=== PATIENT | male | born 1960 | race Caucasian/White ===

== ENCOUNTER 2020-08-25 09:40 | Day surgery (SDC) | payer BC ==
[2020-08-25 11:25] LABS: SARS-CoV-2 NAA Rapid Test Not Detected (NotDetected)
[2020-08-25] MEDS ORDERED: Fentanyl 100 MCG/2 ML VIAL ONE ×2 (11:33→12:17)
[2020-08-25] MEDS ORDERED: Midazolam HCl 2 mg/2 ml Vial ONE ×2 (11:33→12:17)
[2020-08-25] MEDS ORDERED: Ketamine 50 MG/ML (10ML VIAL) ONE (12:18)
[2020-08-25] MEDS ORDERED: Propofol 500 MG/50 ML VIAL ONE (12:18)
[2020-08-25] MEDS ORDERED: PHENYLEPHRINE-NS 100 MCG/ML 10 ML SYRINGE ONE (12:44)
[2020-08-25] MEDS ORDERED: Bupivacaine HCl 0.5%/Epinephrine 1:200,000/PF 30 ml Vial ONE (12:44)
== END 2020-08-25 15:50 | disposition home or self-care (01) ==
LOC: SDC 09:40
PROVIDERS: ATTEND Surgery Surgery of the Hand
PROC: 0X6S0Z0 Detachment at Right Ring Finger, Complete, Open Approach (ICD-10-PCS; principal; 2020-08-25)
PROC: 0X6R0Z0 Detachment at Left Middle Finger, Complete, Open Approach (ICD-10-PCS; principal; 2020-08-25)
DX: S68.113A Complete traumatic metacarpophalangeal amputation of left middle finger, initial encounter (principal); S68.114A Complete traumatic metacarpophalangeal amputation of right ring finger, initial encounter; I10 Essential (primary) hypertension; F17.210 Nicotine dependence, cigarettes, uncomplicated; Z79.899 Other long term (current) drug therapy; Z20.822 Contact with and (suspected) exposure to COVID-19; W31.2XXA Contact with powered woodworking and forming machines, initial encounter
CPT/HCPCS: J0690; J2250; J2704; J3010; U0002

== ENCOUNTER 2021-04-17 21:18 | Inpatient (IN) | payer BC ==
[2021-04-17] MEDS ORDERED: Lorazepam 2 MG/ML VIAL ONE (21:25)
[2021-04-17 22:37] LABS: Acetaminophen Less than 6.0 mcg/mL (10.0-30.0); Alcohol Less than 10 mg/dL (Less than 10); Magnesium 1.4 mg/dL (1.6-2.6); Salicylate Less than 8.0 mg/dL (15.0-30.0)
[2021-04-18] MEDS ORDERED: Lorazepam 1 MG TAB PO PRN
[2021-04-18] MEDS ORDERED: Magnesium 2 GM/50 ML BAG (IN WATER) ONE ×2 (01:02→11:45)
[2021-04-18] MEDS ORDERED: cloNIDine 0.1 MG TAB ONE (02:51)
[2021-04-18] MEDS ORDERED: hydrALAZINE 20 MG/ML VIAL SLOW IVP SCH ×2 (07:00→07:15)
[2021-04-18] MEDS ORDERED: hydrALAZINE 20 MG/ML VIAL ONE (07:12)
[2021-04-18] MEDS: Lorazepam 1 MG TAB PO SCH ×5 (07:26→23:36)
[2021-04-18] MEDS ORDERED: Ondansetron ODT 4 MG TAB PO PRN (07:30)
[2021-04-18] MEDS ORDERED: Lorazepam 2 MG/ML VIAL IM PRN (07:30)
[2021-04-18] MEDS ORDERED: Electrolyte Replacement Protocol 1 EACH FS PRN (07:30)
[2021-04-18] MEDS: Thiamine HCl 200 MG/2 ML VIAL SLOW IVP SCH (08:07)
[2021-04-18] MEDS ORDERED: Lorazepam 1 MG TAB ONE ×2 (08:09→12:00)
[2021-04-18] MEDS: Multivit, Therapeutic 1 TAB PO SCH (08:10)
[2021-04-18] MEDS ORDERED: Folic Acid 1 MG TAB ONE ×2 (08:11→11:46)
[2021-04-18 08:32] LABS: Amphetamine Not Detected (NotDetected); Barbiturates Screen Not Detected (NotDetected); Benzodiazepine Screen Detected (NotDetected); Cocaine Metabolite Screen Not Detected (NotDetected); Methadone Not Detected (NotDetected); Methamphetamine Not Detected (NotDetected); Opiate Screen Not Detected (NotDetected); Oxycodone Screen Not Detected (NotDetected); Phencyclidine (PCP) Not Detected (NotDetected); THC/Cannabinoid Screen Not Detected (NotDetected); Tricyclic Screen Not Detected (NotDetected)
[2021-04-18 09:18] LABS: SARS-CoV-2 NAA Rapid Test Not Detected (NotDetected)
[2021-04-18] MEDS ORDERED: Magnesium 2 GM/50 ML 2 GM in Premix Bag 1 BAG IVPB SCH (09:30)
[2021-04-18 10:24] LABS: #Basophils 0.1 thou/uL (0.0-0.2); #Eosinphils 0.2 thou/uL (0.0-0.7); #Lymphocytes 1.7 thou/uL (1.20-3.40); #Monocytes 0.7 thou/uL (0.11-0.59); #Neutrophils 4.1 thou/uL (1.40-6.50); %Basophils 1.7 % (0.0-1.0); %Eosinophils 2.7 % (0.0-10.0); %Monocytes 10.2 % (0.0-10.0); %Neutrophils 60.4 % (42.0-75.0); Hemoglobin 13.7 g/dL (14.0-18.0); Mean Corpuscular HGB CONC 32.6 g/dL (32.0-36.0); Mean Corpuscular Hemoglobin 31.2 pg (27.0-31.0); Mean Corpuscular Volume 95.7 fL (78.0-98.0); Mean Platelet Volume 7.8 fL (7.4-10.4); Platelet Count 222 thou/uL (130-400); Red Blood Cell (RBC) Count 4.38 mill/uL (4.70-6.10); White Blood Cell (WBC) Count 6.8 thou/uL (4.8-10.8)
[2021-04-18 11:34] LABS: ALT (SGPT) 92 U/L (8-55); AST (SGOT) 82 U/L (5-34); Albumin 3.9 g/dL (3.5-5.0); Alkaline Phosphatase 77 U/L (40-110); Anion Gap 13 mmol/L (10-20); BUN (Urea Nitrogen) 12 mg/dL (8.4-25.7); Bilirubin, Total 3.2 mg/dL (0.2-1.2); Calc. Creatinine Clearance 0 mL/min (70-130); Calcium 9.8 mg/dL (7.8-10.44); Carbon Dioxide 24 mmol/L (22-29); Chloride 101 mmol/L (98-107); Globulin 3.1 g/dL (2.4-3.5); Glucose 141 mg/dL (70-105); Magnesium 1.9 mg/dL (1.6-2.6); Potassium 3.4 mmol/L (3.5-5.1); Sodium 135 mmol/L (136-145)
[2021-04-18] MEDS ORDERED: Metoprolol Tartrate 25 MG TAB ONE (11:45)
[2021-04-18] MEDS: Folic Acid 1 MG TAB PO SCH (11:49)
[2021-04-18 11:52] VITALS: BMI 26.4
[2021-04-18] MEDS ORDERED: Metoprolol Tartrate 25 MG TAB PO SCH (12:00)
[2021-04-18] MEDS ORDERED: Potassium Chloride 20 MEQ TAB PO SCH (13:00)
[2021-04-18] MEDS ORDERED: Potassium Chloride 20 MEQ TAB ONE (14:31)
[2021-04-18] MEDS ORDERED: Labetalol HCl 100 MG/20 ML VIAL ONE (14:33)
[2021-04-18] MEDS: Labetalol HCl 100 MG/20 ML VIAL SLOW IVP PRN ×2 (14:34→20:48)
[2021-04-18] MEDS: Metoprolol Tartrate 25 MG TAB PO SCH (20:48)
[2021-04-18] MEDS ORDERED: Nicotine 21 MG PATCH TD SCH (21:00)
[2021-04-18] MEDS: Nicotine 21 MG PATCH TD SCH (22:09)
[2021-04-19 04:57] LABS: #Basophils 0.1 thou/uL (0.0-0.2); #Eosinphils 0.2 thou/uL (0.0-0.7); #Lymphocytes 2.6 thou/uL (1.20-3.40); #Monocytes 0.9 thou/uL (0.11-0.59); #Neutrophils 4.8 thou/uL (1.40-6.50); %Basophils 1.1 % (0.0-1.0); %Eosinophils 2.1 % (0.0-10.0); %Lymphocytes 30.5 % (21.0-51.0); %Monocytes 10.8 % (0.0-10.0); %Neutrophils 55.5 % (42.0-75.0); Hemoglobin 12.3 g/dL (14.0-18.0); Mean Corpuscular HGB CONC 34.5 g/dL (32.0-36.0); Mean Corpuscular Hemoglobin 33.3 pg (27.0-31.0); Mean Corpuscular Volume 96.5 fL (78.0-98.0); Mean Platelet Volume 7.8 fL (7.4-10.4); Platelet Count 181 thou/uL (130-400); RBC Distribution Width 14.9 % (11.5-14.5); Red Blood Cell (RBC) Count 3.68 mill/uL (4.70-6.10); White Blood Cell (WBC) Count 8.6 thou/uL (4.8-10.8)
[2021-04-19 05:22] LABS: Anion Gap 11 mmol/L (10-20); BUN (Urea Nitrogen) 11 mg/dL (8.4-25.7); Calc. Creatinine Clearance 114 mL/min (70-130); Calcium 9.3 mg/dL (7.8-10.44); Carbon Dioxide 25 mmol/L (22-29); Chloride 100 mmol/L (98-107); Glucose 109 mg/dL (70-105); Magnesium 1.8 mg/dL (1.6-2.6); Potassium 3.4 mmol/L (3.5-5.1); Sodium 133 mmol/L (136-145)
[2021-04-19] MEDS: Lorazepam 1 MG TAB PO SCH ×3 (06:08→17:22)
[2021-04-19] MEDS ORDERED: Magnesium 2 GM/50 ML 2 GM in Premix Bag 1 BAG IVPB SCH ×2 (06:30→09:00)
[2021-04-19] MEDS ORDERED: Potassium Chloride 20 MEQ TAB PO SCH ×2 (06:30→09:00)
[2021-04-19] MEDS ORDERED: Lorazepam 1 MG TAB PO PRN (07:30)
[2021-04-19] MEDS ORDERED: Losartan 25 MG TAB PO SCH ×2 (09:00→12:45)
[2021-04-19] MEDS: Folic Acid 1 MG TAB PO SCH (09:36)
[2021-04-19] MEDS: Multivit, Therapeutic 1 TAB PO SCH (09:36)
[2021-04-19] MEDS: Labetalol HCl 100 MG/20 ML VIAL SLOW IVP PRN ×2 (09:36→20:12)
[2021-04-19] MEDS: Metoprolol Tartrate 25 MG TAB PO SCH ×2 (09:36→20:12)
[2021-04-19] MEDS: Thiamine HCl 200 MG/2 ML VIAL SLOW IVP SCH (09:52)
[2021-04-19] MEDS ORDERED: NIFEdipine XL 60 MG TAB PO SCH (16:00)
[2021-04-19 16:50] LABS: HBCM Index 0.09 S/CO (0-0.79); HBSAg Index 0.25 S/CO (0-0.99); Hep A IgM AB Non-Reactive (NonReactive); Hep A IgM S/CO 0.09 S/CO (0-0.79); Hep B Surf Ag Non-Reactive S/CO (NonReactive); Hep C IgG Ab Non-Reactive (NonReactive); Hep C Index 0.18 S/CO (0-0.79); Hepatitis B Core IgM Abs Non-Reactive (NonReactive); Thyroid Stimulating Hormone 2.8737 uIU/mL (0.35-4.94)
[2021-04-19] MEDS ORDERED: Acetaminophen 325 MG TAB PO SCH (20:00)
[2021-04-19] MEDS: Nicotine 21 MG PATCH TD SCH (20:12)
[2021-04-19] MEDS ORDERED: Labetalol HCl 100 MG TAB PO SCH (21:30)
[2021-04-20] MEDS: Lorazepam 1 MG TAB PO SCH (00:04)
[2021-04-20 04:39] LABS: ALT (SGPT) 74 U/L (8-55); AST (SGOT) 60 U/L (5-34); Albumin 3.7 g/dL (3.5-5.0); Alkaline Phosphatase 77 U/L (40-110); Anion Gap 12 mmol/L (10-20); BUN (Urea Nitrogen) 9 mg/dL (8.4-25.7); Bilirubin, Total 2.2 mg/dL (0.2-1.2); Calc. Creatinine Clearance 103 mL/min (70-130); Calcium 9.4 mg/dL (7.8-10.44); Carbon Dioxide 23 mmol/L (22-29); Chloride 101 mmol/L (98-107); Globulin 2.9 g/dL (2.4-3.5); Glucose 121 mg/dL (70-105); Magnesium 1.7 mg/dL (1.6-2.6); Phosphorus 3.7 mg/dL (2.3-4.7); Potassium 3.7 mmol/L (3.5-5.1); Protein, Total 6.6 g/dL (6.0-8.3); Sodium 132 mmol/L (136-145)
[2021-04-20] MEDS ORDERED: Lorazepam 0.5 MG TAB PO SCH (06:00)
[2021-04-20] MEDS ORDERED: Magnesium 2 GM/50 ML 2 GM in Premix Bag 1 BAG IVPB SCH (07:00)
[2021-04-20] MEDS ORDERED: Lorazepam 1 MG TAB PO PRN (07:30)
[2021-04-20] MEDS ORDERED: Spironolactone 25 MG TAB PO SCH (08:00)
[2021-04-20] MEDS ORDERED: Losartan 25 MG TAB PO SCH (09:00)
[2021-04-20] MEDS ORDERED: Labetalol HCl 100 MG TAB PO SCH (09:00)
[2021-04-20] MEDS ORDERED: Furosemide 20 MG TAB PO SCH (09:00)
[2021-04-20] MEDS ORDERED: NIFEdipine XL 60 MG TAB PO SCH (09:00)
[2021-04-20] MEDS: Folic Acid 1 MG TAB PO SCH (09:10)
[2021-04-20] MEDS: Multivit, Therapeutic 1 TAB PO SCH (09:10)
[2021-04-20] MEDS: Thiamine HCl 200 MG/2 ML VIAL SLOW IVP SCH (09:54)
[2021-04-20 12:23] VITALS: BP 152/98; TEMP 97.8
[2021-04-21] MEDS ORDERED: Lorazepam 0.5 MG TAB PO PRN (06:00)
[2021-04-21] MEDS ORDERED: Thiamine 100 MG TAB PO SCH (09:00)
[2021-04-26 13:15] LABS: Renin Activity Less than 0.167 ng/mL/hr (0.167-5.380)
== END 2021-04-20 12:00 | disposition home or self-care (01) | DRG 897 ==
LOC: ERS 21:18 → ERHOLD 23:38 → 2NO 04-18 15:59
PROVIDERS: ADMIT Internal Medicine; ATTEND Internal Medicine
DX: F10.239 Alcohol dependence with withdrawal, unspecified (principal); I16.1 Hypertensive emergency; I50.9 Heart failure, unspecified; K21.9 Gastro-esophageal reflux disease without esophagitis; E78.5 Hyperlipidemia, unspecified; I11.0 Hypertensive heart disease with heart failure; F17.210 Nicotine dependence, cigarettes, uncomplicated; I16.0 Hypertensive urgency; E83.42 Hypomagnesemia; E87.6 Hypokalemia; F41.9 Anxiety disorder, unspecified; K75.9 Inflammatory liver disease, unspecified; K70.30 Alcoholic cirrhosis of liver without ascites; Z20.822 Contact with and (suspected) exposure to COVID-19
CPT/HCPCS: 36415; 80048; 80053; 80074; 80306; 80307; 82088; 83735; 84100; 84244; 84443; 85025; 93005; 96365; 96366; 96375; J0360; J2060; J3411; J3475; Q0162; U0002